=== PATIENT | male | born 2000 | race Caucasian/White ===

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

== ENCOUNTER 2020-04-04 19:12 | Emergency (ER) | payer OTHER ==
[~2020-04-04] VITALS: Ht 182.9 cm; Wt 88.6 kg
[~2020-04-04 19:12] MED LIST: HYDR-3164 PO
[2020-04-04] MEDS ORDERED: LIDOCAINE 1% Multi-Dose 20 ML VIAL. INJ ONE (19:45)
[2020-04-04] MEDS ORDERED: HYDROcodone/APAP 5/325MG 1 TAB TABLET PO ONE (19:45)
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
[2020-04-04 21:10] VITALS: BP 133/69
== END 2020-04-04 21:12 | disposition home or self-care (01) ==
LOC: ER 19:12
DX: S01.21XA Laceration without foreign body of nose, initial encounter (principal); F90.9 Attention-deficit hyperactivity disorder, unspecified type; V86.56XA Driver of dirt bike or motor/cross bike injured in nontraffic accident, initial encounter; Y92.488 Other paved roadways as the place of occurrence of the external cause; Y93.89 Activity, other specified; Y99.8 Other external cause status
CPT/HCPCS: 12011; 70450; 70486; 72125; 99285; J3490; 12001